=== PATIENT | male | born 1965 | race Caucasian/White ===

== ENCOUNTER 2017-04-04 17:25 | Emergency (ER) | payer MEDICARE, MEDICAID ==
[~2017-04-04] VITALS: Ht 170.2 cm; Wt 68.2 kg
[2017-04-04 17:30] VITALS: BP 122/79; PULSE 64; RESP 20; O2SAT 98
--- NOTE | 2017-04-04 18:37 | ED.REPORT ---
HPI-Extremity Problem Lower Date of Service April 04, 2017 ED Provider: Martir Negro MD A 51 year old male with a history of developmental delay, explosive disorder, and PTSD is brought to the ED by his caretakers due to right leg swelling. The pt was being showered today when his caretakers noticed swelling and redness of the right lower extremity. The pt has explosive disorder and frequently kicks doors, so they believe that this may be related to his current symptoms. Per caretakers, the pt does not express pain so they are unsure if he is experiencing extremity pain or other similar symptoms, though he has been walking normally. The pt does not have a fever and has not been vomiting. 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 Arrived By: Walk-in Onset Occurred: 5 - 8 hours ago Symptom Duration: Since onset Recent Healthcare: No recent hospitalization, Recent doctor visit Similar Sx Previous: No Past Medical History Past Medical History developmental delay PTSD explosive disorder Past Surgical History none reported Smoking History Unknown if Ever Smoker Social History has caretakers Ambulatory Status Independent Review of Systems Review of Systems Note: ROS obtained from caretakers right lower extremity redness Constitutional: Denies: Fever Musculoskeletal: Reports: Extremity swelling (right lower extremity) Complete sys rev & neg: except as marked. GI: Denies: Vomiting Physical Exam Initial Vital Signs Vital Signs (First) Date Time Temp Pulse Resp B/P Pulse Ox O2 Delivery O2 Flow Rate FiO2 04/04/17 17:30 36.2 64 20 122/79 98 Room Air Initial VS: Reviewed Lower Extremity / Pelvis / MS: Atraumatic swelling, redness and warmth below the right knee no deformity normal temperature and pulses in right foot General/Constitutional: Awake, Alert Respiratory / Chest: Atraumatic, Breath sounds NL, Breath sounds = bilat, No respiratory distress Cardiovascular: Heart rate NL, Regular rhythm, Heart sounds NL Skin: Atraumatic, Color NL, No rash, Warm, Dry Neurologic: No motor deficits, No sensory deficits Head / Eyes: Atraumatic, Normocephalic, PERRL, EOMI ENT: Atraumatic, Airway patent, Mucous membranes moist Neck: Atraumatic, Supple, Full range of motion Abdomen: Atraumatic, Soft, Non-tender Back: Atraumatic, Full range of motion Upper Extremity / MS: Atraumatic, Full range of motion Psychiatric: Mood NL Interpretation & Diagnostics Interpretation & Diagnostics: Venous Duplex US: IMPRESSION: No deep vein thrombosis of the right lower extremity. Dictated by: Hayde Noble M.D. on 04/04/2017 at 19:44 Approved by: Hayde Noble M.D. on 04/04/2017 at 19:44 Right Tibia/Fibula X-Ray: IMPRESSION: No acute radiographic findings. If pain persists, repeat study in 5-7 days is recommended to exclude occult fracture. Dictated by: Hayde Noble M.D. on 04/04/2017 at 19:46 Approved by: Hayde Noble M.D. on 04/04/2017 at 19:46 Re-Eval/Medical Decision Source of Hx: Old records Re-Evaluation/Progress : Time of Eval: 20:08 Re-Evaluation/Progress Note: Pt rechecked, who appears comfortable. Pt's caretakers are informed of US results. The diagnosis and plan for discharge are discussed. The pt's caretakers understand and agree with the plan. All questions are addressed at this time. Counseled Regarding: Diagnosis, Lab results, Need for follow-up, When/why to return to ED Discharge & Departure Impression: Primary Impression: Cellulitis Site of cellulitis: extremity Site of cellulitis of extremity: lower extremity Laterality: right Qualified Code: L03.115 - Cellulitis of right lower limb Disposition: Home Discharge Condition All VS Reviewed: Yes Condition: Stable Patient Instructions: Cellulitis (ED) Additional Instructions: Take the antibiotic (Bactrim) twice daily and elevate the leg as much as possible. Follow-up Thursday if not significantly improved, sooner if worse. Follow up right away for high fever or vomiting. Referrals: [facility] Scribe Attestation Portions of this note were transcribed by Rasta French. I, Dr. Negro personally performed the history, physical exam and medical decision-making; I reviewed and confirmed the accuracy of the information in the transcribed note. Signed by: Mannie Mosquera, 04/04/17 and 2017. copies to: [facility] Martir Negro MD April 04, 2017 18:37 RASTA FRENCH April 04, 2017 19:10
--- NOTE | 2017-04-04 19:46 | DRSVH ---
PROCEDURE: US VEINOUS LEG DUPLEX UNILATERAL, RIGHT INDICATIONS: swelling TECHNIQUE: Real-time imaging, as well as color and pulse Doppler interrogation, were performed of the lower extr emity deep veins from the inguinal ligament to the popliteal fossa. COMPARISON: None. FINDINGS: The deep veins are normally compressible, and free of intraluminal thrombus. Color and pu lse Doppler demonstrate normal phasic intraluminal flow. There is normal augmentation response to di stal compression maneuver. IMPRESSION: No deep vein thrombosis of the right lower extremity. Dictated by: Hayde Noble M.D. on 04/04/2017 at 19:44 Approved by: Hayde Noble M.D. on 04/04/2017 at 19:44
--- NOTE | 2017-04-04 19:48 | DRSVH ---
PROCEDURE: X-RAY RIGHT TIBIA/FIBULA, TWO VIEWS ([id number]) INDICATIONS: redness swelling TECHNIQUE: 2 views of the tibia and fibula were acquired. COMPARISON: None. FINDINGS: Bones: No fractures or dislocations. No suspicious bony lesions. Periosteal reaction is present al luigi the posterior lateral aspect of the fibula suggesting prior, healed injury. Soft tissues: No suspicious soft tissue calcifications or masses. IMPRESSION: No acute radiographic findings. If pain persists, repeat study in 5-7 days is recommende d to exclude occult fracture. Dictated by: Hayde Noble M.D. on 04/04/2017 at 19:46 Approved by: Hayde Noble M.D. on 04/04/2017 at 19:46
[2017-04-04] MEDS ORDERED: SULF1TAB7 PO (20:16)
[2017-04-04] MEDS ORDERED: Trimethoprim-Sulfa 160 mg-800 mg Tablet PO ONE (20:20)
[2017-04-04 20:33] VITALS: PULSE 95; RESP 18; O2SAT 98
--- NOTE | 2017-04-05 13:32 | PCM.EDPN ---
ED Note Date of Service April 05, 2017 This is to indicate that as contacted by the charge nurse with a request to write a hard copy prescription for the patient's Bactrim that was prescribed at a visit yesterday, as the original pharmacy is closed. I reviewed the chart, it is a patient is being treated for "cellulitis", the chart does not mention a prior history of MRSA, and no abscess or deep space infection with a fluid collection was described or noted on the evaluation. Given the absence of any description in the clinical decision-making regarding the choice of Bactrim alone for treatment of isolated cellulitis, given the absence of streptococcal coverage-I have gone ahead and written a prescription for the Bactrim to cover the potential for staph/MRSA, but if added a prescription for cephalexin to cover Streptococcus in the setting of isolated cellulitis. Migel Morales MD April 05, 2017 13:32
== END 2017-04-04 20:34 | disposition home or self-care (01) ==
LOC: EDUNIT# 17:25 → SED 17:25
DX: L03.115 Cellulitis of right lower limb (principal); F43.10 Post-traumatic stress disorder, unspecified; F88 Other disorders of psychological development; F63.81 Intermittent explosive disorder